=== PATIENT | female | born 1980 | race African-American/Black ===

== ENCOUNTER 2016-05-31 06:27 | Emergency (ER) | payer BC ==
[2016-05-31 05:40] LABS: BASOPHILS 0.6 %; BASOPHILS ABSOLUTE 0.04 10/3/uL (0.0-0.16); EOSINOPHILS 3.2 %; EOSINOPHILS ABSOLUTE 0.21 10/3/uL (0.0-0.53); ER CBC TAT 0 Hrs 08 Mins; HEMATOCRIT 32.6 % (36.0-48.0); HEMOGLOBIN 10.2 g/dL (12.0-16.0); LYMPHOCYTES 27.7 %; LYMPHOCYTES ABSOLUTE 1.82 10/3/uL (0.67-4.30); MEAN CORPUS HGB CONC 31.3 g/dL (32.0-36.0); MEAN CORPUSCULAR HEMOGLOB 20.9 pg (26.0-34.0); MEAN CORPUSCULAR VOLUME 66.7 fL (80-100); MEAN PLATELET VOLUME 9.6 fL (9.2-13.0); MONOCYTES 8.4 %; MONOCYTES ABSOLUTE 0.55 10/3/uL (0.21-1.20); NEUTROPHILS 60.1 %; NEUTROPHILS ABSOLUTE 3.95 10/3/uL (2.02-8.40); PLATELET COUNT 258 10/3/uL (150-400); RBC DISTRIBUTION WIDTH 18.6 % (12.0-16.0); RED CELL COUNT 4.89 10/6/uL (4.0-5.6); WHITE BLOOD CELLS 6.6 10/3/uL (4.5-10.5)
[2016-05-31 05:47] LABS: MANUAL DIFF NO %
[2016-05-31 05:52] LABS: ALBUMIN 3.9 G/DL (3.5-5.0); ALKALINE PHOSPHATASE 49 U/L (45-117); CALCIUM, SERUM 8.6 MG/DL (8.5-10.4); CHEST PAIN PROFILE TAT 0 Hrs 20 Mins; CHLORIDE, SERUM 107 MMOL/L (96-112); CO2 (CARBON DIOXIDE) 24 MMOL/L (24-34); CREATININE 0.94 MG/DL (0.55-1.02); GFR AFRICAN AMERICAN 92 ML/MIN (>=60); GFR NON AFRICAN AMERICAN 79 ML/MIN (>=60); GLUCOSE, SERUM 92 MG/DL (60-99); INTERNATIONAL NORMAL RATI 1.1 UNITS (-); PARTIAL THROMBO TIME 26.9 SEC (22.5-37.2); SGOT(AST) 15 U/L (5-40); SGPT(ALT) 10 U/L (5-65); SODIUM, SERUM 139 MMOL/L (135-148); TOTAL BILIRUBIN 0.2 MG/DL (0-1.2); TOTAL PROTEIN 7.7 G/DL (6.0-8.5); TROPONIN I <0.02 NG/ML (<0.05)
[2016-05-31 05:53] LABS: BUN (BLOOD UREA NITROGEN) 15 MG/DL (6-23); DIRECT BILIRUBIN < 0.1 MG/DL (0.0-0.4); INDIRECT BILIRUBIN(NOT ORDER) 0.1 MG/DL (0.1-0.9)
[2016-05-31 05:55] LABS: D-DIMER QUANTITATIVE 0.74 ug/mLFEU (< 0.50)
[2016-05-31 06:25] LABS: ANISOCYTOSIS 1+ (5-10/OIF) (0-5/OIF); PLATELET ESTIMATE ADQ (ADEQUATE)
[2016-05-31 06:26] LABS: ELLIPTOCYTES 1+ (3-10/OIF) (0-2/OIF)
[2016-05-31 06:27] LABS: POIKILOCYTOSIS 1+ (5-10/OIF) (0-5/OIF); TEARDROP SHAPED RBCS OCC (0-2/OIF)
[~2016-05-31 06:27] MED LIST: VALTREX5 PO
== END 2016-05-31 07:28 | disposition home or self-care (01) ==
LOC: ER 06:27
PROVIDERS: Specialist
DX: R07.9 Chest pain, unspecified (principal); R00.2 Palpitations; D64.9 Anemia, unspecified; F17.200 Nicotine dependence, unspecified, uncomplicated; I10 Essential (primary) hypertension; Z88.0 Allergy status to penicillin; Z79.899 Other long term (current) drug therapy
CPT/HCPCS: 71010; 71275; 80048; 80076; 83735; 84484; 85025; 85379; 85610; 85730; 93005; 99285; A9270-GY; Q9967